=== PATIENT | female | born 1995 | race Hispanic/Latino ===

== ENCOUNTER 2019-07-15 04:44 | Inpatient (IN) ==
[2019-07-15] MEDS ORDERED: TYLENOL PO PRN (04:46)
[2019-07-15] MEDS ORDERED: STADOL IV PRN (04:46)
[2019-07-15] MEDS ORDERED: PEPCID PO PRN (04:46)
[2019-07-15] MEDS ORDERED: ZOFRAN IV PRN (04:46)
[2019-07-15] MEDS ORDERED: PEPCID IV PRN (04:46)
[2019-07-15] MEDS ORDERED: REGLAN PO ONE (04:46)
[2019-07-15] MEDS ORDERED: KEFZOL 1 GM/D5W 1 GM/50 ML IVPB IV PRN (04:46)
[2019-07-15] MEDS ORDERED: PEPCID PO ONE (04:46)
[2019-07-15] MEDS ORDERED: AMPICILLIN 2 GM in NS 100 ML IV ONE (05:00)
[2019-07-15] MEDS ORDERED: PITOCIN 30 UNITS/NS 30 UNIT/500 ML IV.SOLN IV SCH ×2 (05:00→13:45)
[2019-07-15] MEDS ORDERED: SODIUM CHLORIDE 0.9% INJ SCH (05:00)
[2019-07-15] MEDS ORDERED: LR 1,000 ML IV SCH (05:00)
[2019-07-15 05:44] LABS: URINE SOURCE VOIDED
[2019-07-15 05:46] LABS: BASO# 0.02 X1000 (0.0-0.2); BASO% 0.2 % (0.0-0.8); EOS# 0.05 X1000 (0.0-0.7); EOS% 0.6 % (0.0-10.0); HEMATOCRIT 37.8 % (37.0-47.0); HEMOGLOBIN 12.3 g/dL (12.0-16.0); IMM GRAN# 0.02 X1000 (0.0-0.04); IMM GRAN% 0.2 % (0.0-0.5); LYMPH# 2.31 X1000 (1.2-3.4); MCH 29.6 PG (27-31); MCHC 32.5 g/dL (33-37); MCV 90.9 FL (81-99); MONO# 0.46 X1000 (0.11-0.59); MONO% 5.2 % (1.7-9.3); MPV 11.6 FL (7.4-10.4); NEUT# 6.01 X1000 (1.4-6.5); NEUT% 67.8 % (42.2-75.2); PLT 177 X1000 (130-400); RBC 4.16 XMIL (4.2-5.4); WBC 8.87 X1000 (4.8-10.8)
[2019-07-15 05:52] LABS: BILIRUBIN URINE NEGATIVE (NEGATIVE); BLOOD URINE NEGATIVE (NEGATIVE); COLOR STRAW; GLUCOSE URINE NEGATIVE (NEGATIVE); KETONE URINE NEGATIVE (NEGATIVE); LEUKOCYTES URINE NEGATIVE (NEGATIVE); NITRITE URINE NEGATIVE (NEGATIVE); PROTEIN URINE NEGATIVE (NEGATIVE); SP GRAVITY URINE 1.006; TURBIDITY URINE CLEAR (CLEAR); UROBILINOGEN URINE NORMAL (NORMAL)
[2019-07-15 06:00] LABS: UR AMPHETAMINES QUAL NONE DETECTED (NONE DETECT); UR BARBITUATES QUAL NONE DETECTED (NONE DETECT); UR BENZODIAZEPIN QUAL NONE DETECTED (NONE DETECT); UR CANNABINOIDS QUAL NONE DETECTED (NONE DETECT); UR COCAINE QUAL NONE DETECTED (NONE DETECT); UR METHADONE QUAL NONE DETECTED (NONE DETECT); UR OPIATES QUAL NONE DETECTED (NONE DETECT); UR OXYCODONE QUAL NONE DETECTED (NONE DETECT); UR PCP QUAL NONE DETECTED (NONE DETECT)
[2019-07-15] MEDS ORDERED: CYTOTEC VAG ONE (06:00)
--- NOTE | 2019-07-15 06:53 | HISTORY AND PHYSICAL ---
HISTORY OF PRESENT ILLNESS: Ms. Fuentes is a 24-year-old G2, P1-0-0-1 at 39 weeks gestation who presents to Labor and Delivery for scheduled induction of labor. The patient reports good movements, occasional contractions. Denies leakage of fluid or vaginal bleeding. Current is significant for failed 1 hour oral glucose tolerance test. However, patient passed 3 hour glucose tolerance test and fundal height has been appropriate with gestational age. MEDICATIONS: vitamins daily. ALLERGIES: No known drug allergies. PAST MEDICAL HISTORY: Noncontributory, none. PAST SURGICAL HISTORY: None. FAMILY HISTORY: Noncontributory. SOCIAL HISTORY: Denies tobacco, alcohol, or drug use. OBSTETRICAL HISTORY: -0-0-1, one prior full-term vaginal deliveries. Denies complications. GYNECOLOGICAL HISTORY: Denies STD exposure. VITAL SIGNS: Temperature 97.8 degrees Fahrenheit, pulse rate 86, respiration rate 18, blood pressure 111/66, weight 185 pounds, height 5 feet 5 inches tall with body mass index 30.8 kg/m2. PHYSICAL EXAM: GENERAL: No acute distress. Alert, awake, oriented x3. CARDIOVASCULAR: Regular rate and rhythm. Positive S1, S2. RESPIRATORY: Clear to auscultation bilaterally. Negative rhonchi rales or wheezing. ABDOMEN: Gravid, soft, nontender to palpation. EXTREMITIES: Negative calf tenderness. There is +1 edema. STERILE VAGINAL EXAM: 3 cm dilated, 50% effaced, -3 station. Electronic monitoring 145 beats per minute, moderate variability, positive accelerations, negative decelerations. [place] contractions occurring q.5 to 10 minutes. LABORATORY: WBCs 8.87, hemoglobin 12.3, hematocrit 37.8, platelets 13,000. GBS group B strep positive. ASSESSMENT: Ms. Alfredo Sagastume is a 24-year-old G2, P1-0-0-1 at 39 weeks gestation who presents to Labor and Delivery for scheduled induction of labor. PLAN: 1. Admit to Labor and Delivery for induction of labor. 2. Obtain routine labor labs. 3. IV ampicillin for GBS positive status. 4. Continuous electronic monitoring. 5. Induce with 1 dose of Cytotec 25 mcg per vagina, then proceed with Pitocin and artificial rupture of membranes as needed. 6. Patient counseled on risks, benefits, and alternatives to scheduled induction of labor. Risks not limited to bleeding, vaginal laceration, injury, shoulder dystocia, a need for vacuum delivery or emergency delivery. The patient understands risks and agrees to proceed with procedure. 7. Estimated weight 8 pounds. 8. Anticipate vaginal delivery.
[2019-07-15] MEDS: AMPICILLIN 1 GM in NS 50 ML IV SCH ×2 (08:52→14:13)
[2019-07-15] MEDS ORDERED: XYLOCAINE-MPF 1% INJ PRN ×2 (10:16→13:33)
[2019-07-15] MEDS ORDERED: MINERAL OIL TOP PRN (10:18)
[2019-07-15] MEDS ORDERED: PERI MEDS (DERMOPLAST/NUPERCAINAL/TUCKS) MISC PRN (13:33)
[2019-07-15] MEDS ORDERED: BENADRYL IV PRN (13:33)
[2019-07-15] MEDS ORDERED: AMBIEN PO PRN (13:33)
[2019-07-15] MEDS ORDERED: HYDROXYZINE IM PRN (13:33)
[2019-07-15] MEDS ORDERED: BENADRYL PO PRN (13:33)
[2019-07-15] MEDS ORDERED: MINERAL OIL PO PRN (13:33)
[2019-07-15] MEDS ORDERED: CYTOTEC PO PRN (13:33)
[2019-07-15] MEDS ORDERED: ATARAX PO PRN (13:33)
[2019-07-15] MEDS ORDERED: M-M-R II VACCINE SUBQ ONE (13:33)
[2019-07-15] MEDS ORDERED: PITOCIN IM PRN (13:33)
[2019-07-15] MEDS ORDERED: BOOSTRIX VACCINE IM ONE (13:33)
[2019-07-15] MEDS ORDERED: PITOCIN 20 UNITS/NS 20 UNITS/1,000 ML IV.SOLN IV SCH (13:45)
[2019-07-15] MEDS: MOTRIN PO PRN (16:41)
[2019-07-15] MEDS: PERICOLACE PO SCH (21:21)
[2019-07-16] MEDS: MOTRIN PO PRN ×3 (00:22→16:31)
[2019-07-16 05:33] LABS: HEMATOCRIT 37.6 % (37.0-47.0); HEMOGLOBIN 12.2 g/dL (12.0-16.0); MCH 29.6 PG (27-31); MCHC 32.4 g/dL (33-37); MCV 91.3 FL (81-99); MPV 11.6 FL (7.4-10.4); RBC 4.12 XMIL (4.2-5.4); RDW 13.2 % (11.5-14.5); WBC 12.89 X1000 (4.8-10.8)
--- NOTE | 2019-07-16 07:05 | OB/GYN PROGRESS NOTE ---
- Subjective Pt seen and examined. Currently w/o complaints. Reports mild cramping with breast feeding. Ambulating and urinating w/o difficulty. tolerating regular diet, denies n/v. Reports decreased lochia. Does not desire contraception OB Physical Exam Vital Signs - 8 hr 07/16/19 00:00 07/16/19 04:00 Temperature 97.3 F L 97.8 F Pulse Rate 69 61 Respiratory Rate 18 18 Blood Pressure 114/82 106/61 O2 Sat by Pulse Oximetry 96 97 - CONSTITUTIONAL General Appearance: appears well, alert, no apparent distress - RESPIRATORY Respiratory: lungs clear, normal breath sounds - CARDIOVASCULAR Cardiovascular: regular rate, rhythm - GASTROINTESTINAL (ABDOMEN) Abdominal Exam: non tender (FF at umbilicus), soft - MUSCULOSKELETAL Extremity: non-tender, no calf tenderness - PSYCHIATRIC Psych/Mental Status: normal mood/affect, oriented x 3 Active Medications Generic Name Dose Route Start Last Admin Trade Name Freq PRN Reason Stop Dose Admin Acetaminophen 650 mg 07/15/19 04:46 Tylenol PO Q4-6H PRN PRN Headache Benzocaine 1 each 07/15/19 13:33 07/15/19 21:21 Noemi Meds (Dermoplast/Nupercainal/Tucks) MISC 1 applic 3-4XDAY PRN PRN Administration episiotomy/hemorrhoids Butorphanol Tartrate 2 mg 07/15/19 04:46 Stadol IV PRN PRN Pain Diphenhydramine HCl 25 mg 07/15/19 13:33 Benadryl PO Q4H PRN PRN Itching Famotidine 40 mg 07/15/19 04:46 Pepcid PO Q12H PRN PRN GI upset or indigestion Hydroxyzine HCl 50 mg 07/15/19 13:33 Atarax PO Q3-4H PRN PRN Nausea Hydroxyzine HCl 50 mg 07/15/19 13:33 Hydroxyzine IM Q3-4H PRN PRN Nausea Ibuprofen 800 mg 07/15/19 13:33 07/16/19 00:22 Motrin PO 800 mg Q8H PRN PRN Administration cramping Lidocaine HCl 30 ml 07/15/19 10:16 07/15/19 13:13 Xylocaine-Mpf 1% INJ 30 ml PRN PRN Administration Vaginal delivery Lidocaine HCl 30 ml 07/15/19 13:33 Xylocaine-Mpf 1% INJ PRN PRN Perineal repair Mineral Oil 30 ml 07/15/19 10:18 Mineral Oil TOP PRN PRN Vaginal delivery Mineral Oil 30 ml 07/15/19 13:33 Mineral Oil PO PRN PRN Perineal massage Misoprostol 800 microgm 07/15/19 13:33 Cytotec PO PRN PRN Severe bleeding Oxytocin 20 unit 07/15/19 13:33 Pitocin IM PRN PRN Severe bleeding Senna/Docusate Sodium 1 each 07/15/19 21:00 07/15/19 21:21 Pericolace PO 1 each QHS JERROD Administration Sodium Chloride 5 - 10 ml 07/15/19 05:00 Sodium Chloride 0.9% INJ DIRECTED JERROD Zolpidem Tartrate 10 mg 07/15/19 13:33 Ambien PO HS PRN PRN Sleep Laboratory Results - last 24 hr 07/16/19 05:13 WBC 12.89 H RBC 4.12 L Hgb 12.2 Hct 37.6 MCV 91.3 MCH 29.6 MCHC 32.4 L RDW Std Deviation 13.2 Plt Count 158 MPV 11.6 H OB Assessment & Plan (1) Vaginal delivery Status: Acute Plan: 24yo PPD#1 s/p - Hgb pending - con't reg diet - oob to ambulation - does not desire control, advised no coitus x 6 weeks - con't routine PP care
--- NOTE | 2019-07-16 16:14 | OPERATIVE NOTE ---
PROCEDURE DATE: 07/15/2019 PROCEDURE: Spontaneous vaginal delivery. SURGEON: Dr. Meir Hagen. FINANCIAL ADMINISTRATOR: None. DESCRIPTION OF PROCEDURE: Patient delivered a viable male at 39 weeks, weighing 7 pounds 5 ounces with of 8 and 10 at 1 and 5 minutes respectively. The vertex was delivered spontaneously over a midline episiotomy. No nuchal cord was identified. The anterior shoulder was delivered atraumatically by maternal expulsive efforts with the assistance of downward traction. The posterior shoulder delivered with maternal expulsive efforts and upward traction. The remainder of the fetus delivered spontaneously. The fetus was placed on the patient's abdomen and assessed by waiting speech correction consultant staff. The cord was clamped and cut. Cord blood was obtained for blood gas analysis. To enhance uterine contractions IV oxytocin was administered. The cervix, vagina and perineum were inspected for lacerations. No lacerations noted only midline second-degree episiotomy noted and repaired. Episiotomy incision repaired with 2 0 chromic in a continuous fashion over subsequent muscle layers. Good hemostasis was obtained. ESTIMATED BLOOD LOSS: 300 mL.
[2019-07-16] MEDS: PERICOLACE PO SCH (21:20)
[2019-07-17] MEDS: MOTRIN PO PRN ×2 (03:16→09:39)
--- NOTE | 2019-07-17 07:47 | DISCHARGE SUMMARY ---
ADMISSION DATE: 07/15/2019 DISCHARGE DATE: 07/17/2019 HOSPITAL COURSE: This patient is a 24-year-old, 2, para 1 at 39 weeks, who presented on July 15 for scheduled induction of labor. The patient had a benign course. She did fail the 1 hour glucose test, passed the 3 hour. She had no known drug allergies. She was on vitamins. Her surgical history was Negative. Her family history noncontributory. She denied tobacco, alcohol or drug abuse. The patient had a previous full-term delivery without complications. She was admitted and delivered uneventfully of a viable male infant, weighing 7 pounds 5 ounce with Apgars of 8 and 10. The delivery was uncomplicated. She did have a second degree episiotomy that was repaired as per protocol. The patient's postop course was totally benign. She remained well and afebrile, and was discharged home on day #2. She will have follow up with her private MD in 4 weeks. She verbalized understanding for all discharge instructions, and she will be discharged home with Motrin to take as needed. Precautions were given.
[2019-07-17 08:12] VITALS: BP 111/72
== END 2019-07-17 11:55 | disposition home or self-care (01) | DRG 807 ==
LOC: LD 04:44
PROVIDERS: ADMIT Obstetrics & Gynecology; ATTEND Obstetrics & Gynecology